=== PATIENT | male | born 1975 | race Caucasian/White ===

== ENCOUNTER 2022-05-11 09:51 | Emergency (ER) | payer MEDICAID ==
[~2022-05-11] VITALS: Ht 165.1 cm; Wt 81.8 kg
[~2022-05-11 09:51] MED LIST: ASPI-1450 PO; ATOR40TA28 PO; CARV3 PO; INSLAN SQ; TICA90TA PO
[2022-05-11 10:06] VITALS: BP 147/78
[2022-05-11] MEDS ORDERED: METF-1211 PO (10:06)
[2022-05-11 10:17] LABS: GLUCOSE,POINT OF CARE 266 MG/DL (70-110)
[2022-05-11] MEDS ORDERED: INSU100V12 SQ (12:25)
[2022-05-11] MEDS ORDERED: CARV6 PO (12:25)
== END 2022-05-11 13:18 | disposition home or self-care (01) ==
LOC: EMS 10:19
DX: S62.101A Fracture of unspecified carpal bone, right wrist, initial encounter for closed fracture (principal); E11.9 Type 2 diabetes mellitus without complications; I10 Essential (primary) hypertension; Z98.62 Peripheral vascular angioplasty status; W19.XXXA Unspecified fall, initial encounter; Y93.89 Activity, other specified; Y92.89 Other specified places as the place of occurrence of the external cause; Y99.8 Other external cause status
CPT/HCPCS: 82962; 99282